=== PATIENT | male | born 1980 | race Caucasian/White ===

== ENCOUNTER 2023-09-09 16:36 | Emergency (ER) | payer OTHER, SELFPAY ==
[2023-09-09 17:19] VITALS: BP 131/63; PULSE 80; RESP 16; TEMP 36.7; O2SAT 98; BMI 27.1
[2023-09-09 17:47] LABS: Add Manual Diff / Slide Review NO; Basophils Absolute Auto 0 /uL (0-100); Basophils Percent Auto 0.5 % (0-2); Eosinophils Absolute Auto 300 /uL (0-450); Eosinophils Percent Auto 4.1 % (2-4); Hematocrit 40.2 % (41-53); Hemoglobin 14.2 g/dL (13.5-17.5); Lymphocytes Absolute Auto 3200 /uL (1100-4500); Lymphocytes Percent Auto 46.8 % (25-40); Mean Corpuscular HGB Conc 35.3 % (30-36); Mean Corpuscular Hemoglobin 31.2 PG (26-34); Mean Corpuscular Volume 88.4 fL (80-100); Monocytes Absolute Auto 500 /uL (0-900); Monocytes Percent Auto 7.1 % (3-14); Neutrophils Absolute Auto 2800 /uL (1500-7000); Neutrophils Percent Auto 41.5 % (50-75); Platelet Count 223 X10^3/uL (150-400); Red Blood Cell Count 4.55 X10^6/uL (4.5-5.9); Red Cell Distribution Width 14.6 % (11.6-14.8); White Blood Cell Count 6.8 X10^3/uL (4.5-11.0)
--- NOTE | 2023-09-09 17:54 | DI.CT.S_ITS ---
PROCEDURE: CT ABDOMEN PELVIS W CON INDICATIONS: RLQ pain w/walking/standing TECHNIQUE: After the administration of intravenous contrast, axial sections acquired from the lung bases to the pubic symphysis. Coronal and sagittal reformats were performed. For radiation dose reduction, the following was used: automated exposure control, adjustment of mA and/or kV according to patient size. COMPARISON: None. FINDINGS: Image quality: Diagnostic. Lower Chest: No significant findings. ABDOMEN: Liver: No solid mass. Gallbladder: No radiopaque gallstones or wall thickening. Biliary ducts: No biliary dilation. Pancreas: No ductal dilation. Spleen: There is borderline splenomegaly. No discrete splenic lesion. Adrenal Glands: No adrenal nodules. Kidneys and Ureters: No hydronephrosis. No solid mass. No complex renal cystic lesion which requires follow up. Stomach and Bowel: Appendix is visualized in right lower quadrant and is normal in size and appearance. There is no abnormal bowel wall thickening or mesenteric fat stranding. No abscess collection. Peritoneum: No abnormal intraperitoneal fluid. No free air. Ventral Wall: No significant ventral hernia. Abdominal Nodes: No retroperitoneal or mesenteric adenopathy by size criteria. Vessels: Aorta and inferior vena cava are normal in size. PELVIS: Pelvic Organs: Unremarkable. Bladder: No bladder wall thickening, accounting for underdistention. Pelvic Nodes: No enlarged lymph nodes. Miscellaneous: No inguinal hernias are seen. Bones: No aggressive osseous abnormality. IMPRESSION: 1. No acute inflammatory process is seen in abdomen or pelvis. No bowel obstruction or abnormal bowel wall thickening. No free fluid or free air. No evidence of acute appendicitis. Dictated by: Wilian Lucio M.D. on 09/09/2023 at 18:50 Approved by: Wilian Lucio M.D. on 09/09/2023 at 18:53
[2023-09-09 18:01] LABS: Alanine Aminotransferase 51 IU/L (<50); Albumin 4.7 g/dL (3.5-5.0); Albumin Globulin Ratio 1.6 (1.0-2.8); Alkaline Phosphatase 58 U/L (38-126); Aspartate Aminotransferase 35 IU/L (17-59); BUN Creatinine Ratio 9.3 (6-22); Bilirubin Total 1.1 mg/dL (0.2-1.3); Blood Urea Nitrogen 8 mg/dL (9-20); Calcium 8.8 mg/dL (8.4-10.2); Carbon Dioxide 29 mmol/L (22-32); Chloride 105 mmol/L (98-107); Estimated Glomerular Filt Rate > 60 mL/min (>60); Glucose 101 mg/dL (70-100); HEMOLYSIS < 15 (0-50); Lipase 84 U/L (23-300); Potassium 3.8 mmol/L (3.4-5.1); Sodium 141 mmol/L (137-145); Total Protein 7.7 g/dL (6.3-8.2)
--- NOTE | 2023-09-09 18:51 | ED_ITS ---
HPI - Abdominal Pain <Stacy Gerber PA-C - Last Filed: 09/09/23 19:07> General Chief Complaint: Abdominal Pain Stated Complaint: lower abdominal Pain Time Seen by Provider: 09/09/23 17:54 Source: EMS Mode of arrival: EMS History of Present Illness HPI narrative: Is a 43-year-old male with no significant medical history who presents with concern for right lower quadrant abdominal pain. 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 Since that time he has been having aching pain in his right lower abdomen that is worse with standing and with walking. He states it is better when he is sitting and at rest and he does not feel it radiating to his groin or to his flank. He denies any symptoms prior to this possibly a little less appetite today but denies nausea fevers chills diarrhea constipation abdominal pain in this location previously, any recent heavy lifting or trauma, dysuria or any other complaints or concerns. Review of Systems <Stacy Gerber PA-C - Last Filed: 09/09/23 19:07> Review of Systems Narrative: See HPI Patient History <Stacy Gerber PA-C - Last Filed: 09/09/23 19:07> Social History Smoking Status: Never smoker Smoking Status: Never smoker Substance Use Type: does not use Exam <Stacy Gerber PA-C - Last Filed: 09/09/23 19:07> Narrative Exam Narrative: GENERAL: 43 year old patient appears stated age. Well-developed patient, in mild distress, well-appearing. HEAD: Atraumatic. Normocephalic. EYES: Pupils equal round and reactive. Extraocular motions intact. No scleral icterus. No injection or drainage. ENT: Nose without bleeding, purulent drainage. Airway patent. NECK: Trachea midline. CARDIOVASCULAR: Regular rate and rhythm without murmurs, gallops, or rubs. RESPIRATORY: Clear to auscultation. Breath sounds equal bilaterally. No wheezes, rales, or rhonchi. GASTROINTESTINAL: Abdomen soft, there is right lower quadrant tenderness with flexion of the knee and positive obturator sign, slight right lower quadrant tenderness on palpation, no flank tenderness or CVA tenderness, abdomen is otherwise non-tender, nondistended. EXTREMITIES: No edema or joint tenderness. BACK: Nontender without deformity or crepitance. No flank tenderness. NEURO: AOx3. SKIN: No rash or erythema of visible areas Initial Vital Signs Initial Vital Signs: Vital Signs Temperature 98.1 F 09/09/23 17:19 Pulse Rate 80 09/09/23 17:19 Respiratory Rate 16 09/09/23 17:19 Blood Pressure 131/63 09/09/23 17:19 Pulse Oximetry 98 09/09/23 17:19 Oxygen Delivery Method Room Air 09/09/23 17:19 Oxygen Flow Rate 100 09/09/23 17:19 <DO Vanessa Bhandari Last Filed: 09/09/23 19:30> Initial Vital Signs Initial Vital Signs: Vital Signs Temperature 98.1 F 09/09/23 17:19 Pulse Rate 80 09/09/23 17:19 Respiratory Rate 16 09/09/23 17:19 Blood Pressure 131/63 09/09/23 17:19 Pulse Oximetry 98 09/09/23 17:19 Oxygen Delivery Method Room Air 09/09/23 17:19 Oxygen Flow Rate 100 09/09/23 17:19 Course <Stacy Gerber PA-C - Last Filed: 09/09/23 19:07> Orders Ordered: ED Orders 09/09/23 17:29 Complete Blood Count AUTO DIFF Stat Comprehensive Metabolic Panel Stat Lipase Stat 09/09/23 17:54 CT abdomen pelvis w con Stat Discontinued Medications Ondansetron HCl (Ondansetron 4 Mg Odt) 4 mg PO NOW PRN PRN Reason: Nausea And Vomiting Ondansetron HCl (Ondansetron 4 Mg/2 Ml Inj) 4 mg IV NOW PRN PRN Reason: Nausea And Vomiting Vital Signs Vital signs: Vital Signs - 8 hr 09/09/23 17:19 09/09/23 18:59 Temperature 98.1 F Pulse Rate 80 74 Respiratory Rate 16 18 Blood Pressure 131/63 125/69 Pulse Oximetry 98 100 Oxygen Delivery Method Room Air Room Air Oxygen Flow Rate 100 <DO Vanessa Bhandari Last Filed: 09/09/23 19:30> Orders Ordered: ED Orders 09/09/23 17:29 Complete Blood Count AUTO DIFF Stat Comprehensive Metabolic Panel Stat Lipase Stat 09/09/23 17:54 CT abdomen pelvis w con Stat Discontinued Medications Ondansetron HCl (Ondansetron 4 Mg Odt) 4 mg PO NOW PRN PRN Reason: Nausea And Vomiting Ondansetron HCl (Ondansetron 4 Mg/2 Ml Inj) 4 mg IV NOW PRN PRN Reason: Nausea And Vomiting Vital Signs Vital signs: Vital Signs - 8 hr 09/09/23 17:19 09/09/23 18:59 Temperature 98.1 F Pulse Rate 80 74 Respiratory Rate 16 18 Blood Pressure 131/63 125/69 Pulse Oximetry 98 100 Oxygen Delivery Method Room Air Room Air Oxygen Flow Rate 100 MDM - Abdominal Pain <Stacy Gerber PA-C - Last Filed: 09/09/23 19:07> Differential Diagnosis Differential diagnosis: Likely abdominal pain, acute appendicitis, constipation and diverticulitis Medical Records Attestation: I reviewed the patient's medical records. Lab Data Attestation: I reviewed the patient's lab results. 09/09/23 17:29 09/09/23 17:29 Labs: Lab Results 09/09/23 Range/Units 17:29 WBC 6.8 (4.5-11.0) X10^3/uL RBC 4.55 (4.5-5.9) X10^6/uL Hgb 14.2 (13.5-17.5) g/dL Hct 40.2 L (41-53) % MCV 88.4 (80-100) fL MCH 31.2 (26-34) PG MCHC 35.3 (30-36) % RDW 14.6 (11.6-14.8) % Plt Count 223 (150-400) X10^3/uL Neut % (Auto) 41.5 L (50-75) % Lymph % (Auto) 46.8 H (25-40) % [place] % (Auto) 7.1 (3-14) % Eos % (Auto) 4.1 H (2-4) % Baso % (Auto) 0.5 (0-2) % Neut # (Auto) 2800 (6286-9125) /uL Lymph # (Auto) 3200 (4135-2457) /uL [place] # (Auto) 500 (0-900) /uL Eos # (Auto) 300 (0-450) /uL Baso # (Auto) 0 (0-100) /uL Sodium 141 (137-145) mmol/L Potassium 3.8 (3.4-5.1) mmol/L Chloride 105 (98-107) mmol/L Carbon Dioxide 29 (22-32) mmol/L BUN 8 L (9-20) mg/dL Creatinine 0.86 (0.66-1.25) mg/dL Estimated GFR > 60 (>60) mL/min BUN/Creatinine Ratio 9.3 (6-22) Glucose 101 H (70-100) mg/dL Calcium 8.8 (8.4-10.2) mg/dL Total Bilirubin 1.1 (0.2-1.3) mg/dL AST 35 (17-59) IU/L ALT 51 H (<50) IU/L Alkaline Phosphatase 58 (38-126) U/L Total Protein 7.7 (6.3-8.2) g/dL Albumin 4.7 (3.5-5.0) g/dL Globulin 3.0 (1.7-4.1) g/dL Albumin/Globulin Ratio 1.6 (1.0-2.8) Lipase 84 (23-300) U/L Point of care testing: Urine Dip Bedside Urine Glucose Negative Bedside Urine Bilirubin - Negative Bedside Urine Ketone - Negative Urine Specific [place] 1.005 Bedside Urine Occult Blood - Negative Bedside Urine pH 7.0 Bedside Urine Protein - Negative Bedside Urine Nitrite - Negative Bedside Urine Leukocytes - Negative Esterase Imaging Data CT scan - abdomen/pelvis: Radiologist's Impression: [place] [address] CT Scan Report Signed Patient: Hi Phillip MR#: [id number] : 1980 Acct:[id number] Age/Sex: 43 / M Date of Service: 09/09/23 Loc: ED Accession Number: [id number] Procedure: CT abdomen pelvis w con Ordering Provider: Stacy Gerber P.A-C PROCEDURE: CT ABDOMEN PELVIS W CON INDICATIONS: RLQ pain w/walking/standing TECHNIQUE: After the administration of intravenous contrast, axial sections acquired from the lung bases to the pubic symphysis. Coronal and sagittal reformats were performed. For radiation dose reduction, the following was used: automated exposure control, adjustment of mA and/or kV according to patient size. COMPARISON: None. FINDINGS: Image quality: Diagnostic. Lower Chest: No significant findings. ABDOMEN: Liver: No solid mass. Gallbladder: No radiopaque gallstones or wall thickening. Biliary ducts: No biliary dilation. Pancreas: No ductal dilation. Spleen: There is borderline splenomegaly. No discrete splenic lesion. Adrenal Glands: No adrenal nodules. Kidneys and Ureters: No hydronephrosis. No solid mass. No complex renal cystic lesion which requires follow up. Stomach and Bowel: Appendix is visualized in right lower quadrant and is normal in size and appearance. There is no abnormal bowel wall thickening or mesenteric fat stranding. No abscess collection. Peritoneum: No abnormal intraperitoneal fluid. No free air. Ventral Wall: No significant ventral hernia. Abdominal Nodes: No retroperitoneal or mesenteric adenopathy by size criteria. Vessels: Aorta and inferior vena cava are normal in size. PELVIS: Pelvic Organs: Unremarkable. Bladder: No bladder wall thickening, accounting for underdistention. Pelvic Nodes: No enlarged lymph nodes. Miscellaneous: No inguinal hernias are seen. Bones: No aggressive osseous abnormality. IMPRESSION: 1. No acute inflammatory process is seen in abdomen or pelvis. No bowel obstruction or abnormal bowel wall thickening. No free fluid or free air. No evidence of acute appendicitis. Dictated by: Wilian Lucio M.D. on 09/09/2023 at 18:50 Approved by: Wilian Lucio M.D. on 09/09/2023 at 18:53 <Wes Martin DO - Last Filed: 09/09/23 19:30> Lab Data Labs: Lab Results 09/09/23 Range/Units 17:29 WBC 6.8 (4.5-11.0) X10^3/uL RBC 4.55 (4.5-5.9) X10^6/uL Hgb 14.2 (13.5-17.5) g/dL Hct 40.2 L (41-53) % MCV 88.4 (80-100) fL MCH 31.2 (26-34) PG MCHC 35.3 (30-36) % RDW 14.6 (11.6-14.8) % Plt Count 223 (150-400) X10^3/uL Neut % (Auto) 41.5 L (50-75) % Lymph % (Auto) 46.8 H (25-40) % [place] % (Auto) 7.1 (3-14) % Eos % (Auto) 4.1 H (2-4) % Baso % (Auto) 0.5 (0-2) % Neut # (Auto) 2800 (9330-2370) /uL Lymph # (Auto) 3200 (2625-9834) /uL [place] # (Auto) 500 (0-900) /uL Eos # (Auto) 300 (0-450) /uL Baso # (Auto) 0 (0-100) /uL Sodium 141 (137-145) mmol/L Potassium 3.8 (3.4-5.1) mmol/L Chloride 105 (98-107) mmol/L Carbon Dioxide 29 (22-32) mmol/L BUN 8 L (9-20) mg/dL Creatinine 0.86 (0.66-1.25) mg/dL Estimated GFR > 60 (>60) mL/min BUN/Creatinine Ratio 9.3 (6-22) Glucose 101 H (70-100) mg/dL Calcium 8.8 (8.4-10.2) mg/dL Total Bilirubin 1.1 (0.2-1.3) mg/dL AST 35 (17-59) IU/L ALT 51 H (<50) IU/L Alkaline Phosphatase 58 (38-126) U/L Total Protein 7.7 (6.3-8.2) g/dL Albumin 4.7 (3.5-5.0) g/dL Globulin 3.0 (1.7-4.1) g/dL Albumin/Globulin Ratio 1.6 (1.0-2.8) Lipase 84 (23-300) U/L Point of care testing: Urine Dip Bedside Urine Glucose Negative Bedside Urine Bilirubin - Negative Bedside Urine Ketone - Negative Urine Specific [place] 1.005 Bedside Urine Occult Blood - Negative Bedside Urine pH 7.0 Bedside Urine Protein - Negative Bedside Urine Nitrite - Negative Bedside Urine Leukocytes - Negative Esterase Discharge Plan Departure Patient Disposition: Home Clinical Impression: Abdominal pain, acute, right lower quadrant Activity Restrictions/Additional Instructions: *You have been diagnosed with [acute right lower quadrant abdominal pain] *What to do: *Please continue to take your regular medications as directed. [ ] New medication prescriptions sent to your pharmacy: [ ] [ ] New medication written as a paper prescription [ X] No new medications given *Please follow up with your primary care provider in 2-3 days, call for an appointment. Let them know you were seen in the Emergency Department and that we ask that you be seen in follow up. We will electronically transmit a record of today's note if your PCP is in our system. You had a fairly sudden onset right low abdominal pain has been intermittent and persistent this afternoon since it started. We checked her labs and did a CC T scan to evaluate for possible appendicitis. Your CT scan looks normal there is no evidence of appendicitis or other inflammatory/infectious process or other concerning findings on CT scan today per radiologist. Your labs also looked very good you have no elevated white count your liver enzymes look good and your pancreas labs look good. Your urine also looked fine, no evidence of a urinary tract infection. While it does not sound like there was anything you did to trigger an injury or a pulled muscle it is possible that your pain is related to a muscular problem/musculoskeletal pain. I would recommend monitoring her symptoms over the next few days, sometimes early symptoms and pain can present with symptoms such as yours but not show up as abnormal on labs or imaging. If you have new or worsening pain or develop fevers or other symptoms of concern definitely seek re-evaluation. Otherwise in general you should follow up with your primary care provider within the next 2-5 days. Your pain was minimal today in the ER at rest and I am not prescribing pain meds for you but I would recommend you take Tylenol and ibuprofen as needed and make sure you are staying hydrated. Hopefully your symptoms resolve and improve independently. I hope you feel better soon *If you do not have a primary care provider please contact the [facility] Resource line at [phone]. They will ask some questions about your medical history and help get you set up with a doctor in the community. *Return to Emergency Department if you should have any new, worsening or concerning symptoms, such as [fever greater than 101 F, shaking chills, worsening pain, persistent vomiting or other bothersome symptoms] Stand Alone Forms: Patient Portal/API ED Sign-out <Wes Martin, DO - Last Filed: 09/09/23 19:30> Cosign ED Attending Cosignature Attestation: Dr Martin Co-Sign Statement: I was available for consultation during this patient's emergency department visit. This chart is signed by myself for administrative purposes only. I did not have direct contact with this patient during this visit. They were seen independently by the APC.
[2023-09-09 18:59] VITALS: BP 125/69; PULSE 74; RESP 18; O2SAT 100
== END 2023-09-09 19:10 | disposition home or self-care (01) ==
PROVIDERS: Emergency Medicine; Emergency Provider Student in an Organized Health Care Education/Training Program
DX: R10.31 Right lower quadrant pain (principal)
CPT/HCPCS: 74177; 80053; 81003; 83690; 85025; 99282; 99284; Q9967